=== PATIENT | female | born 2000 | race African-American/Black ===

== ENCOUNTER 2021-05-11 08:22 | Emergency (ER) | payer MEDICAID ==
[~2021-05-11] VITALS: Ht 165.1 cm; Wt 80.0 kg
[2021-05-11 08:30] VITALS: BP 129/69; TEMP 97.1
[2021-05-11 08:58] VITALS: PULSE 84
== END 2021-05-11 08:58 | disposition home or self-care (01) ==
LOC: COL.ER 08:22
DX: O26.893 Other specified pregnancy related conditions, third trimester (principal); M54.2 Cervicalgia; H92.09 Otalgia, unspecified ear; Z3A.38 38 weeks gestation of pregnancy

== ENCOUNTER 2021-06-01 14:51 | Emergency (ER) | payer MEDICAID ==
[~2021-06-01] VITALS: Ht 165.1 cm; Wt 63.6 kg
[2021-06-01 16:30] VITALS: BP 130/64; PULSE 80; TEMP 98.3
[2021-06-01] MEDS ORDERED: PREDNISONE50 MG PO (16:30)
[2021-06-01] MEDS ORDERED: LIQUIFILM TEARS15 ML OU (16:30)
[2021-06-01] MEDS ORDERED: VALTREX1 GM PO (16:31)
== END 2021-06-01 16:38 | disposition home or self-care (01) ==
LOC: COL.ER 14:51
DX: O99.355 Diseases of the nervous system complicating the puerperium (principal); G51.0 Bell's palsy

== ENCOUNTER 2021-09-11 23:05 | Emergency (ER) | payer MEDICAID ==
[~2021-09-11] VITALS: Ht 165.1 cm; Wt 77.3 kg
[~2021-09-11 23:05] MED LIST: LIQUIFILM TEARS15 ML OU; PREDNISONE50 MG PO; VALTREX1 GM PO
[2021-09-12 01:10] LABS: COLLECTION METHOD CLEAN CATCH
[2021-09-12 01:16] LABS: PH 6 (5-8); URINE APPEARANCE Hazy; URINE BACTERIA None Seen /hpf; URINE BILIRUBIN Negative (NEGATIVE); URINE BLOOD Negative (NEGATIVE); URINE COLOR Yellow; URINE GLUCOSE Negative (NEGATIVE); URINE KETONE Negative (NEGATIVE); URINE LEUKOCYTE ESTERASE 1+ (NEGATIVE); URINE NITRATE Negative (NEGATIVE); URINE PROTEIN(semi-quant) Negative (NEGATIVE); URINE RBC 0-2 /hpf
[2021-09-12] MEDS ORDERED: FLAGYL500 MG PO (02:49)
[2021-09-12 04:35] VITALS: BP 130/65; PULSE 79; TEMP 97.9
== END 2021-09-12 03:15 | disposition home or self-care (01) ==
LOC: COL.ER 23:05
PROVIDERS: Nurse Practitioner
DX: N76.0 Acute vaginitis (principal); Z32.02 Encounter for pregnancy test, result negative

== ENCOUNTER 2021-10-12 13:11 | Emergency (ER) | payer MEDICAID ==
[~2021-10-12] VITALS: Ht 165.1 cm; Wt 68.2 kg
[~2021-10-12 13:11] MED LIST changes: +FLAGYL500 MG PO
[2021-10-12 13:55] VITALS: TEMP 98.4
[2021-10-12] MEDS ORDERED: AMOXICILLIN 25250 MG PO (16:36)
[2021-10-12] MEDS ORDERED: NORCO 325 MG-51 TAB PO (16:36)
[2021-10-12 16:49] VITALS: BP 144/80; PULSE 87
== END 2021-10-12 16:49 | disposition home or self-care (01) ==
LOC: COL.ER 13:11
DX: S02.2XXA Fracture of nasal bones, initial encounter for closed fracture (principal); S02.31XA Fracture of orbital floor, right side, initial encounter for closed fracture; F17.290 Nicotine dependence, other tobacco product, uncomplicated; Y04.0XXA Assault by unarmed brawl or fight, initial encounter

== ENCOUNTER 2021-11-22 12:10 | Emergency (ER) | payer MEDICAID ==
[~2021-11-22] VITALS: Ht 165.1 cm; Wt 76.4 kg
[~2021-11-22 12:10] MED LIST changes: +AMOXICILLIN 25250 MG PO; +NORCO 325 MG-51 TAB PO
[2021-11-22 12:33] VITALS: TEMP 98.2
[2021-11-22 14:41] VITALS: BP 127/79; PULSE 77
== END 2021-11-22 14:48 | disposition home or self-care (01) ==
LOC: COL.ER 12:10
DX: S10.93XA Contusion of unspecified part of neck, initial encounter (principal); S00.83XA Contusion of other part of head, initial encounter; Y04.8XXA Assault by other bodily force, initial encounter; Y07.03 Male partner, perpetrator of maltreatment and neglect
CPT/HCPCS: Q9967